=== PATIENT | male | born 1985 | race African-American/Black ===

== ENCOUNTER 2019-12-03 12:33 | Emergency (ER) | payer MEDICAID ==
[~2019-12-03] VITALS: Ht 175.3 cm; Wt 65.0 kg
[2019-12-03] MEDS ORDERED: IBUPROFEN 600MG TABLET PO ONE (15:15)
[2019-12-03] MEDS ORDERED: BACITRACIN ZINC OINT UDPKT TOP ONE (15:15)
[2019-12-03] MEDS ORDERED: TETANUS, DIPHTHERIA, PERTUSSIS VAC/PF 0.5ML (>7YR OLD) IM ONE (15:15)
[2019-12-03] MEDS ORDERED: LIDOCAINE 1%/EPI 1:100,000 10 ML VIAL IJ ONE (15:15)
[2019-12-03] MEDS: LIDOCAINE HCL/EPINEPHRINE 1%-EPI 1:100,000 20 ML VIAL MC NR ×3 (15:26→15:37)
[2019-12-03 15:27] VITALS: BP 132/82
[2019-12-03] MEDS ORDERED: CEPHALEXIN 250MG CAPSULE PO ONE (15:45)
== END 2019-12-03 16:24 | disposition home or self-care (01) ==
LOC: ER 12:33
DX: S61.412A Laceration without foreign body of left hand, initial encounter (principal); L08.89 Other specified local infections of the skin and subcutaneous tissue; X99.1XXA Assault by knife, initial encounter; Y93.89 Activity, other specified; Y92.89 Other specified places as the place of occurrence of the external cause
CPT/HCPCS: 12001; 90471; 90715; 99284; J3490

== ENCOUNTER 2019-12-14 13:11 | Emergency (ER) | payer MEDICAID ==
[~2019-12-14] VITALS: Ht 172.7 cm; Wt 61.0 kg
[2019-12-14 13:27] VITALS: BP 118/98
== END 2019-12-14 15:22 | disposition home or self-care (01) ==
LOC: ER 13:11
DX: Z48.02 Encounter for removal of sutures (principal)
CPT/HCPCS: 99281